=== PATIENT | female | born 1970 | race Hispanic/Latino ===

== ENCOUNTER 2019-12-03 16:42 | Emergency (ER) | payer OTHER ==
[2019-12-03] MEDS ORDERED: ONDANSETRON HCL 4 MG/2 ML VIAL ONE (17:08)
[2019-12-03] MEDS ORDERED: SODIUM CHLORIDE 0.9% 1000ML 1,000 ML IV ONE (17:08)
[2019-12-03] MEDS ORDERED: KETOROLAC TROMETHAMINE 30MG/ML ONE (17:08)
[2019-12-03 17:13] LABS: EOSINOPHILS % (AUTO) 1.5 % (0.0-8.0); HEMATOCRIT 43.7 % (36-48); LYMPHOCYTES % (AUTO) 13.8 % (21.0-51.0); MEAN CORPUSCULAR HEMOGLOBIN 29.7 pg (27.0-33.0); MEAN CORPUSCULAR HGB CONC 33.4 g/dL (32.0-36.0); MEAN CORPUSCULAR VOLUME 88.8 fL (79-99); MONOCYTES % (AUTO) 4.9 % (3.0-13.0); NEUTROPHILS % (AUTO) 79.6 % (40.0-77.0); PLATELET COUNT (AUTO) 224 K/uL (130-400); RED BLOOD CELL COUNT(AUTO) 4.92 MIL/uL (4.00-5.50); RED CELL DISTRIBUTION WIDTH 12.9 % (11.0-15.5); WHITE BLOOD COUNT (AUTO) 6.5 K/uL (4.8-10.8)
[2019-12-03 17:25] LABS: CREATININE 0.8 mg/dL (0.5-1.5); POTASSIUM 3.5 mmol/L (3.5-5.1)
[2019-12-03 17:29] LABS: BILIRUBIN,TOTAL 0.4 mg/dL (0.2-1.0); TOTAL PROTEIN, SERUM 8.6 g/dL (6.0-8.3)
[2019-12-03] MEDS ORDERED: MORPHINE SULFATE 4 MG/1ML SYG ONE (18:07)
== END 2019-12-03 19:01 | disposition home or self-care (01) ==
LOC: EDH 16:42
DX: K80.80 Other cholelithiasis without obstruction (principal); Z88.6 Allergy status to analgesic agent; Z90.49 Acquired absence of other specified parts of digestive tract; Z90.710 Acquired absence of both cervix and uterus
CPT/HCPCS: 36415; 76705; 80053; 82550; 83605; 83690; 84484; 85025; 87040 ×2; 93005; 96361; 96374; 96375; 99285; J1885; J2270; J2405; J7030

== ENCOUNTER 2023-12-14 10:45 | Observation (INO) | payer OTHER ==
[2023-12-12 13:51] LABS: BASOPHILS # (AUTO) 0.04 K/uL (0.00-0.20); BASOPHILS % (AUTO) 0.6 % (0.0-5.0); EOSINOPHILS # (AUTO) 0.15 K/uL (0.00-0.70); EOSINOPHILS % (AUTO) 2.2 % (0.0-8.0); HEMATOCRIT 43.5 % (36-48); IMMATURE GRANULOCYTE ABSOLUTE 0.03 K/uL (0-1); LYMPHOCYTES # (AUTO) 1.9 K/uL (1.0-4.8); LYMPHOCYTES % (AUTO) 28.2 % (21.0-51.0); MEAN CORPUSCULAR HGB CONC 32.9 g/dL (32.0-36.0); MEAN CORPUSCULAR VOLUME 91.2 fL (79-99); MONOCYTES # (AUTO) 0.5 K/uL (0.1-1.0); MONOCYTES % (AUTO) 6.8 % (3.0-13.0); NEUTROPHILS # (AUTO) 4.2 K/uL (1.8-7.7); NEUTROPHILS % (AUTO) 61.8 % (40.0-77.0); PLATELET COUNT (AUTO) 286 K/uL (130-400); RED BLOOD CELL COUNT(AUTO) 4.77 MIL/uL (4.00-5.50); RED CELL DISTRIBUTION WIDTH 12.6 % (11.0-15.5); WHITE BLOOD COUNT (AUTO) 6.8 K/uL (4.8-10.8)
[2023-12-12 13:59] LABS: CREATININE 0.8 mg/dL (0.5-1.0); POTASSIUM 4.3 mmol/L (3.5-5.1)
[2023-12-12 14:34] VITALS: BP 124/79; PULSE 90; RESP 16; TEMP 97.7
[2023-12-14] VITALS (26 sets, daily range): BP systolic 114–141; BP diastolic 68–97; PULSE 62–83; RESP 12–18; TEMP 97.5–98.5
[~2023-12-14] VITALS: Ht 152.4 cm; Wt 71.7 kg
[~2023-12-14 10:45] MED LIST: ACET-2743 PO; MULT-1283 PO; OMEP40CA21 PO; ONDA-245 PO; SUCR1TAB PO; VITAMIN D PO; [UNRECOGNIZED DRUG - OTHER] PO
[2023-12-14 12:13] LABS: INR 0.97 (0.85-1.15); PROTHROMBIN TIME 10.5 SEC (9.6-11.6)
[2023-12-14 12:15] LABS: PARTIAL THROMBOPLASTIN TIME 25.1 SEC (26.3-35.5)
[2023-12-14] MEDS: LACTATED RINGERS 1000ML 1,000 ML IV ONE (12:39)
[2023-12-14] MEDS ORDERED: rocuRONium bROMide 10MG/1ML 5ML VL ONE (14:04)
[2023-12-14] MEDS ORDERED: MIDAZOLAM HCL 1 MG/ML 2ML VIAL ONE (14:04)
[2023-12-14] MEDS ORDERED: FENTanyl CITRate PF 50 MCG/1 ML 2ML VIAL ONE (14:04)
[2023-12-14] MEDS ORDERED: proPOFol 10 MG/ML 20ML VIAL IV ONE (14:04)
[2023-12-14] MEDS ORDERED: FENTanyl CITRate PF 50 MCG/1 ML 5ML AMP IV ONE (14:22)
[2023-12-14] MEDS ORDERED: ondanSETRON 4MG INJ ONE (14:22)
[2023-12-14] MEDS: ceFAZolin SODIUM 2 GM VIAL ONE (14:22)
[2023-12-14] MEDS ORDERED: DiphenhydrAMINE HCL 50 MG/ML VIAL ONE (14:33)
[2023-12-14] MEDS: acetaMINOPHEN 1,000 MG/100 ML VIAL IV ONE (14:36)
[2023-12-14] MEDS: FAMOTIDINE 20MG VIAL IV ONE (14:40)
[2023-12-14] MEDS: BUPIvacaine/PF 0.25% 30ML VIAL IJ ONE (14:42)
[2023-12-14] MEDS ORDERED: NEOSTIGMINE METHYLSULFATE 1MG/ML IV ONE (16:28)
[2023-12-14] MEDS ORDERED: GLYCOPYRROLATE 0.2 MG/ML 5 ML VIAL ONE (16:28)
[2023-12-14] MEDS ORDERED: ketOROlac 30MG VIAL (30MG/ML) ONE (16:42)
[2023-12-14] MEDS ORDERED: metoCLOPRAmide 10 MG/2 ML VIAL IVP PRN (17:00)
[2023-12-14] MEDS ORDERED: ondanSETRON 4MG INJ IVP PRN (17:00)
[2023-12-14] MEDS ORDERED: acetaMINOPHEN 500 MG TABLET PO PRN (17:00)
[2023-12-14] MEDS: MEPERIDINE-PF 25 MG/ML SYG ONE (17:51)
[2023-12-14] MEDS: ketOROlac 15MG/ML VIAL (15MG/ML) IV PRN (20:41)
[2023-12-14] MEDS: FAMOTIDINE 20MG VIAL IV SCH (20:41)
[2023-12-14] MEDS: LACTATED RINGERS 1000ML 1,000 ML IV SCH (21:36)
[2023-12-14] MEDS: hydroMORPHone 0.5 MG SYG (0.5MG/0.5ML) IVP PRN (21:36)
[2023-12-15] VITALS (10 sets, daily range): BP systolic 113–140; BP diastolic 73–86; PULSE 64–88; RESP 16–20; TEMP 98–98.9; O2SAT 99
[2023-12-15] MEDS: HYDROcod/acetaMINOPHEN 7.5/325 MG 15 ML UDCUP PO PRN (00:46)
[2023-12-15] MEDS ORDERED: ENOXAPARIN SODIUM 30 MG/0.3 ML SQ SCH (09:00)
[2023-12-15] MEDS: ENOXAPARIN SODIUM 30 MG/0.3 ML SQ SCH (09:59)
[2023-12-15] MEDS: DiphenhydrAMINE HCL 50 MG/ML VIAL ONE (17:17)
[2023-12-15] MEDS: DiphenhydrAMINE HCL 50 MG/ML VIAL IV ONE (17:29)
[2023-12-15] MEDS: doCUSate SODIUM 100 MG CAP PO ONE ×2 (21:03→21:04)
[2023-12-16 03:28] VITALS: BP 121/82; PULSE 73; RESP 16; TEMP 98.6
[2023-12-16 08:00] VITALS: BP 135/77; PULSE 75; RESP 18; TEMP 98.8
[2023-12-16 12:00] VITALS: BP 130/68; PULSE 70; RESP 18; TEMP 98.6
== END 2023-12-16 14:00 | disposition home or self-care (01) ==
LOC: DAH 10:45 → UNDOADMOB 10:46 → DAHIP 10:46 → DAH 10:46 → 3AH 10:46 → UNDODISOB 10:47 → 3AH 21:34
PROVIDERS: ADMIT Surgery; ATTEND Surgery
DX: K44.9 Diaphragmatic hernia without obstruction or gangrene (principal); K21.00 Gastro-esophageal reflux disease with esophagitis, without bleeding; D64.9 Anemia, unspecified; Z90.710 Acquired absence of both cervix and uterus; Z79.899 Other long term (current) drug therapy; Z98.890 Other specified postprocedural states
CPT/HCPCS: 80048; 85025; 86850; 86900; 86901; 36415 ×2; 93005; 43282; 96374; 96375; 85610; 85730; 73030; 43235; 96376 ×2; 96372; 97161; 97116; 97530 ×2; A6260; A4663; A4215 ×2; J7120; J1200 ×2; J3490 ×4; J3010 ×2; J0665; J2250; J2704; J2405; J1885 ×5; J2710; J2175; J1170 ×3; J0690; A4930 ×4; C1781; A4223 ×2; A4657; A4213; A4222; A4221; A4216; A4600; G0378 ×28; J1650; G8980; G8983

== ENCOUNTER → 2024-03-21 | Outpatient (CLI) | payer OTHER ==
--- NOTE | 2024-03-21 09:21 | HMCIMG ---
UPPER GI TRACT, WO KUB REASON: GASTRO-ESOPHAGEAL REFLUX DISEASE WITH ESOPHAGITIS W/O BLEEDING, NAUSEA WITH. COMPARISON: None TECHNIQUE: Biphasic upper GI series study was performed. FINDINGS: There is no obstruction to the antegrade passage of barium from mouth through jejunum. A normal esophageal stripping wave is seen. There is no evidence of hiatal hernia. Gastroesophageal reflux is seen to the level of the mid thoracic esophagus. Stomach is well distended without ulceration or mass lesion. Duodenal sweep and duodenal bulb are unremarkable. There is duodenal diverticulum. IMPRESSION: No obstruction is seen. Mild gastroesophageal reflux seen to level of mid thoracic esophagus.
== END | disposition home or self-care (01) ==
LOC: RAH 08:18
PROVIDERS: ATTEND Surgery
DX: K21.00 Gastro-esophageal reflux disease with esophagitis, without bleeding (principal); R11.2 Nausea with vomiting, unspecified; K57.10 Diverticulosis of small intestine without perforation or abscess without bleeding
CPT/HCPCS: 74240

== ENCOUNTER 2025-01-15 11:51 | Emergency (ER) | payer OTHER ==
[~2025-01-15] VITALS: Ht 152.4 cm; Wt 70.3 kg
--- NOTE | 2025-01-15 12:52 | HMCIMG ---
EXAM: CR Cervical spine, 5 View. CLINICAL HISTORY: Left neck pain COMPARISON: None provided. FINDINGS: BONES: No acute fracture or aggressive appearing osseous lesion. DISCS/DEGENERATIVE CHANGES: Mild osteoarthritic changes noted at the atlantoaxial interval. The disc spaces are preserved. Posterior vertebral body alignment is within normal limits. SOFT TISSUES: No prevertebral soft tissue swelling. The visualized lung apices are clear. IMPRESSION: No acute cervical spine abnormality. /[place]
--- NOTE | 2025-01-15 13:49 | EKG ---
[facility] Test Date: 2025-01-15 Test Time: 13:43:04 Pat Name: NEHAL HESTER Department: ED Room: Gender: F [employer]ist: [birth year] : 1970 Requested By: ROLY ARMSTRONG Order Number: [id number] Reading MD: Shannon Young Measurements Intervals [place] Rate: 82 P: 10 LA: 151 QRS: 12 QRSD: 85 T: -2 QT: 383 QTc: 449 Interpretive Statements Sinus rhythm Compared to ECG 12/12/2023 13:43:54 No significant changes Electronically Signed On 01-16-2025 10:25:27 CDT by Shannon Young Please click the below link to view image of tracing.
[2025-01-15] MEDS: ORPHENADRINE 60MG/2ML IM ONE (14:20)
[2025-01-15] MEDS ORDERED: METH-811 PO (14:56)
[2025-01-15] MEDS ORDERED: NAPR-1196 PO (14:56)
--- NOTE | 2025-01-15 14:57 | ERN ---
General Chief Complaint: Neck Pain Stated Complaint: NECK PAIN Time Seen by MD: 12:00 Time Seen by Midlevel: 12:00 Source: patient History of Present Illness Initial Comments 54-year-old female who presents to the emergency department due to left-sided neck pain onset 2 days. Patient denies any injury or trauma to the neck. Has been states patient was complaining of discomfort to the neck three days ago he massaged her neck and severe pain initiated the next day. Patient reports pain radiates down to the left shoulder but denies any associated symptoms. Denies significant past medical history. Allergies: Coded Allergies: metoclopramide (Unverified Allergy, Unknown, HIVES, 12/15/23) mushroom (Unverified Allergy, Unknown, HIVES, 12/14/23) ondansetron (Unverified Allergy, Unknown, HIVES, 12/15/23) Home Meds Active Scripts Naproxen (Naproxen) 250 Mg Tablet, 1 TAB PO BID for pain for 5 Days, #10 TAB 0 R efills Prov:ROLY ARMSTRONG 01/15/25 Methocarbamol (Methocarbamol) 500 Mg Tablet, 2 TAB PO TID for 5 Days, #30 TAB 0 Refills Prov:ROLY ARMSTRONG 01/15/25 Reported Medications [vitamin d3/k] No Conflict Check, 1 TAB PO DAILY 12/12/23 Acetaminophen (Tylenol Extra Strength) 500 Mg Tablet, 1000 MG PO AD PRN for PAIN, TAB 12/12/23 Multivitamin with Minerals (Hair, Skin & Nails) 1 Each Tablet, 1 EACH PO TID, TAB 12/12/23 Ondansetron (Ondansetron Odt) 8 Mg Tab.rapdis, 1 TAB PO TID 12/12/23 Sucralfate (Carafate) 1 Gram Tablet, 1 TAB PO TID 12/12/23 Omeprazole (Omeprazole) 40 Mg Capsule.dr, 1 CAP PO DAILY 12/12/23 Past Medical History Past Medical History: No Pertinent History Medical History Other: denies pmhx Past Surgical History: Other Surgical History Other: stomach sx ROS Dictation Constitutional: Negative for fever,chills, and weight loss Eyes: Negative for injury, pain,redness, and discharge ENT: Negative for injury,pain or swelling Cardiovascular: Negative for chest pain, palpitations, and edema Respiratory: Negative for shortness of breath, cough, and wheezing, Abdomen/GI: Negative for abdominal pain, nausea, vomiting, diarrhea, and constipation Back: Negative for injury and pain : Negative for painful urination, bleeding or discharge MS/Extremity: Positive neck pain Negative for injury and deformity Skin: Negative for rash, and discoloration Neuro: Negative for headache, weakness, numbness, tingling, and seizure Psych: Negative for suicide ideation, homicidal ideation, and hallucinations Physical Exam Physical Exam Dictation General: awake, alert, no acute distress Head/Face: Normocephalic, atraumatic Eyes: PERRL, EOMI, normal conjunctiva ENT: oral cavity clear, oral mucosa moist Cardiovascular: RRR, normal S1/S2 Respiratory: CTAB, no respiratory distress Skin: Warm, dry, normal turgor, no rash MS/Extremity: Pulses equal, no cyanosis, neurovascular intact, FROM. Neck: Tenderness to palpation on the left side of the neck, trapezius muscles, and left scapular area, decreased range of motion restricted by pain. Neuro: COAx4, GCS 15, strength 5/5, CN 2-12 intact, normal cerebellar exam, normal gait Psych: Normal behavior, mood, and affect normal Results EKG/XRAY/US/CT/MRI X-RAY Comment REASON: Left neck pain ORDERING PHYSICIAN: ROLY ARMSTRONG PAC PROCEDURE: CERV 4 5VW - CERV SPINE 4-5 VWS EXAM: CR Cervical spine, 5 View. CLINICAL HISTORY: Left neck pain COMPARISON: None provided. FINDINGS: BONES: No acute fracture or aggressive appearing osseous lesion. DISCS/DEGENERATIVE CHANGES: Mild osteoarthritic changes noted at the atlantoaxial interval. The disc spaces are preserved. Posterior vertebral body alignment is within normal limits. SOFT TISSUES: No prevertebral soft tissue swelling. The visualized lung apices are clear. IMPRESSION: No acute cervical spine abnormality. /[place] DICTATED BY: CECY GALAN Jr., MD DATE: 01/15/25 12[address] [facility] MDM: Differential diagnosis: Muscle spasm, torticollis, fracture, sprain, strain Rationale: 54-year-old female who presents to the emergency department due to left-sided neck pain onset 2 days. Patient denies any injury or trauma to the neck. Has been states patient was complaining of discomfort to the neck three days ago he massaged her neck and severe pain initiated the next day. Patient reports pain radiates down to the left shoulder but denies any chest pain, shortness of breath, numbness, tingling, change of speech, headache, vision change or further associated symptoms. Denies significant past medical history. X-rays obtained with no acute findings. Per history and physical examination a ppears to be consistent with torticollis. Patient was administered Norflex and ketorolac in the ED. patient was educated on findings and results. Advised to follow up with PCP. Return to the emergency department if any worsening symptoms. Patient verbalized understanding. Patient stable for discharge. There are no social concerns with this patient. I independently interpreted the test that were performed, results were reviewed by me and considered findings on radiology if ordered. Medical management and examination interpretation discussions were had by me with other qualified healthcare professionals as indicated for the patient's care. ED Course Orders Procedure Category Date Status Time Cerv Spine 4-5 Vws RAD 01/15/25 Resulted 12:19 Ketorolac PHA 01/15/25 Complete Tromethamine 15mg/Ml 12:30 Orphenadrine Citrate PHA 01/15/25 Complete (Norflex) 12:30 12 Lead Ekg Tracing- EKG 01/15/25 Complete Technical 13:35 Current Medications Medications (Trade) Dose Ordered Sig/[place] Route PRN Reason Start Time Stop Time Status Last Admin Dose Admin Ketorolac Tromethamine (toRADol) 15 mg ONCE ONCE IM 01/15/25 12:30 01/15/25 12:31 DC 01/15/25 14:20 Orphenadrine Citrate (Norflex) 60 mg ONCE ONCE IM 01/15/25 12:30 01/15/25 12:31 DC 01/15/25 14:20 Vital Signs Date Time Temp Pulse Resp B/P (MAP) Pulse Ox O2 Delivery O2 Flow Rate FiO2 01/15/25 15:03 97.9 87 20 158/98 98 Room Air* 0 21 01/15/25 11:57 97.7 89 16 166/104 97 Room Air* 0 21 01/15/25 11:52 97.7 89 16 166/104 97 Room Air 0 DX & DISP Disposition: Discharge Departure Impression: Primary Impression: Torticollis, acute Condition: Stable Scripts Naproxen (Naproxen) 250 Mg Tablet 1 TAB PO BID for pain for 5 Days, #10 TAB 0 Refills Prov: ROLY ARMSTRONG 01/15/25 Methocarbamol (Methocarbamol) 500 Mg Tablet 2 TAB PO TID for 5 Days, #30 TAB 0 Refills Prov: ROLY ARMSTRONG 01/15/25 Additional Instructions: Discharge home. Rest. Follow up with primary care DrJoshua in 24 hours. Return to the ER for any acute changes or worsening symptoms. If any medications were prescribed take as directed. Okay to continue home medications unless otherwise discussed during your visit in the emergency room today. Patient was also advised to follow-up with primary care physician in 1 to 2 days for continued monitoring. Referrals: CESAR KHOURY (PCP) I performed the substantive portion of the visit. I have reviewed and personally made and approve the management plan that is documented in the notes by myself or the JR. I acknowledge full responsibility for the patient's management plan. ROLY ARMSTRONG Jan 15, 2025 14:56
[2025-01-15 15:03] VITALS: BP 158/98; PULSE 87; RESP 20; TEMP 97.8; O2SAT 98
== END 2025-01-15 15:09 | disposition home or self-care (01) ==
LOC: EDH 11:51
DX: M43.6 Torticollis (principal); Z88.8 Allergy status to other drugs, medicaments and biological substances; Z79.899 Other long term (current) drug therapy
CPT/HCPCS: 99284; 72050; 96372 ×2; 93005; J1885; J2360